=== PATIENT | female | born 1970 | race Caucasian/White ===

== ENCOUNTER 2018-07-10 16:17 | Emergency (ER) | payer MEDICAID ==
[~2018-07-10] VITALS: Ht 167.6 cm; Wt 129.0 kg
[~2018-07-10 16:17] MED LIST: ARIP5TAB4 PO; FERR47.53 PO; GABA300C PO; HYDR-3686 PO; HYDR12.522 PO; METF500T PO; TOP100T PO; TRAZ-91 PO; VALS160T2 PO; VENL25TA PO
[2018-07-10 16:33] VITALS: BP 134/96
[2018-07-10] MEDS ORDERED: METH-360 PO (16:45)
[2018-07-10] MEDS ORDERED: diazepam 5mg tablet PO ONE (16:45)
[2018-07-10] MEDS ORDERED: ketorolac tromethamine 15mg/ml inj. IM ONE (16:45)
[2018-07-10] MEDS ORDERED: NAPR-56 PO (16:45)
== END 2018-07-10 17:14 | disposition home or self-care (01) ==
LOC: ER 16:19
DX: M54.5 Low back pain (principal); G89.29 Other chronic pain; I10 Essential (primary) hypertension; E11.9 Type 2 diabetes mellitus without complications; Z90.49 Acquired absence of other specified parts of digestive tract; Z98.890 Other specified postprocedural states; Z56.0 Unemployment, unspecified; Z88.0 Allergy status to penicillin; Z88.5 Allergy status to narcotic agent; Z88.8 Allergy status to other drugs, medicaments and biological substances; Z79.84 Long term (current) use of oral hypoglycemic drugs; Z79.899 Other long term (current) drug therapy
CPT/HCPCS: 96372; 99283; J1885

== ENCOUNTER 2018-08-31 12:58 | Emergency (ER) | payer MEDICAID ==
[~2018-08-31] VITALS: Ht 172.7 cm; Wt 131.5 kg
[~2018-08-31 12:58] MED LIST changes: +METH-360 PO
[2018-08-31 13:12] VITALS: BP 144/87
[2018-08-31] MEDS ORDERED: IBUP-1984 PO (14:11)
== END 2018-08-31 14:23 | disposition home or self-care (01) ==
LOC: ER 12:58
DX: M79.672 Pain in left foot (principal); I10 Essential (primary) hypertension; E11.9 Type 2 diabetes mellitus without complications; G89.29 Other chronic pain; Z90.49 Acquired absence of other specified parts of digestive tract; Z88.0 Allergy status to penicillin; Z88.5 Allergy status to narcotic agent; Z88.8 Allergy status to other drugs, medicaments and biological substances; Z79.899 Other long term (current) drug therapy; Z56.0 Unemployment, unspecified; X50.1XXA Overexertion from prolonged static or awkward postures, initial encounter; Y93.89 Activity, other specified; Y92.89 Other specified places as the place of occurrence of the external cause; Y99.8 Other external cause status
CPT/HCPCS: 73630; 99284

== ENCOUNTER 2024-05-08 13:09 | Emergency (ER) | payer MEDICAID ==
[~2024-05-08] VITALS: Ht 172.7 cm; Wt 112.8 kg
[~2024-05-08 13:09] MED LIST changes: +ARIP5TAB12 PO; -ARIP5TAB4 PO
[2024-05-08] MEDS ORDERED: ketorolac trometh. 30mg/ml inj. IM ONE (14:30)
[2024-05-08] MEDS: ketorolac tromethamine 15mg/ml inj. IM ONE (14:58)
[2024-05-08] MEDS: dexamethasone sod phosphate 10mg/ml inj IM STA (14:59)
[2024-05-08] MEDS ORDERED: MELO-100 PO (15:32)
[2024-05-08 15:36] VITALS: BP 144/89; PULSE 75; RESP 18; TEMP 98.1; O2SAT 97
== END 2024-05-08 15:41 | disposition home or self-care (01) ==
LOC: ER 13:09
DX: S80.01XA Contusion of right knee, initial encounter (principal); M25.561 Pain in right knee; M25.461 Effusion, right knee; I10 Essential (primary) hypertension; E11.9 Type 2 diabetes mellitus without complications; F31.9 Bipolar disorder, unspecified; Z88.0 Allergy status to penicillin; Z88.8 Allergy status to other drugs, medicaments and biological substances; Z88.5 Allergy status to narcotic agent; Z79.899 Other long term (current) drug therapy; Z90.49 Acquired absence of other specified parts of digestive tract; X58.XXXA Exposure to other specified factors, initial encounter; Y93.89 Activity, other specified; Y92.89 Other specified places as the place of occurrence of the external cause; Y99.8 Other external cause status
CPT/HCPCS: 73564; 96372; 99284; J1100; J1885; A6449